=== PATIENT | female | born 1950 | race Caucasian/White ===

== ENCOUNTER 2018-07-08 08:06 | Day surgery (SDC) | payer MEDICARE, OTHER ==
[~2018-07-08] VITALS: Ht 165.1 cm; Wt 88.9 kg
[~2018-07-08 08:06] MED LIST: ALEVE220 M2 PO; AMLODIPINE BESY10 MG PO; APPLE CIDER VINEGAR PO; CO Q10200 MG PO; DYMISTA1 SPR; EPIPEN 2-P0.3 MG/0.3 IM; GAS RELIEF EXT125 MG PO; GINKGO BILOB120 M1 PO; LISINOPRIL40 MG PO; MULTI FOR HER 50+ PO; MUPIROCIN2 % EX; MYRBETRIQ50 MG PO; PRILOSEC20 MG PO; PROBIOTIC MULTI1 TAB PO; SERTRALINE100 MG PO; SG ASA LOW81 M1 PO; SIMVASTATIN20 MG PO; SUPER B-50 COMPLEX PO; TURMERIC CURCUM1 CA1 PO; TURMERIC CURCUM1 CAP PO; [UNRECOGNIZED DRUG - OTHER] PO
[2018-07-08 11:39] VITALS: BP 152/87
== END 2018-07-08 11:55 | disposition home or self-care (01) ==
LOC: ENDO 08:06
PROVIDERS: ATTEND Surgery
PROC: 0DJD8ZZ Inspection of Lower Intestinal Tract, Via Natural or Artificial Opening Endoscopic (ICD-10-PCS; principal; 2018-07-08)
DX: Z12.11 Encounter for screening for malignant neoplasm of colon (principal); K64.4 Residual hemorrhoidal skin tags; Q43.8 Other specified congenital malformations of intestine; K57.30 Diverticulosis of large intestine without perforation or abscess without bleeding

== ENCOUNTER 2019-01-15 22:21 | Emergency (ER) | payer MEDICARE, OTHER ==
[~2019-01-15] VITALS: Ht 165.1 cm; Wt 89.0 kg
[2019-01-15 23:32] LABS: URINE BLOOD DIPSTICK LARGE (NEGATIVE); URINE COLOR YELLOW; URINE GLUCOSE - DIPSTICK NEGATIVE (NEGATIVE); URINE KETONE TRACE mg/dL (NEGATIVE); URINE LEUK ESTERASE NEGATIVE (NEGATIVE); URINE NITRITE - DIPSTICK NEGATIVE (Negative); URINE PROTEIN - DIPSTICK TRACE mg/dL (NEG-TRACE); URINE SPECIFIC GRAVITY >=1.030
[2019-01-15 23:33] LABS: HEMATOCRIT 38.1 % (37.0-47.0); IMMATURE GRANULOCYTES 0.3 % (0.0-5.0); MEAN CELL VOLUME 90.1 fL CALC (80.0-100.0); MEAN CORPUSCULAR HGB 28.4 pG CALC (26.0-32.0); MEAN CORPUSCULAR HGB CONC 31.5 g/L CALC (32.0-36.0); NEUT# 8.53 thou/uL (2.00-7.15); RED BLOOD COUNT 4.23 mill/uL (4.20-5.60); RED CELL DISTRI WIDTH 15.6 % (11.5-15.5)
[2019-01-15 23:39] LABS: ALBUMIN 4.5 g/dL (3.2-5.0); AMYLASE 50 u/l (30-110); ANION GAP 17 (6-22 (CALC)); BILIRUBIN, TOTAL 3.3 mg/dL (0.0-1.4); BUN 28 mg/dL (8-23); BUN/CREATININE RATIO 27 (12-20 (CALC)); CARBON DIOXIDE 22 mmol/l (22-30); CHLORIDE 105 mmol/l (95-108); CREATININE 1.1 mg/dL (0.5-1.0); GFR 49 ML/MIN (>=60 (CALC)); GFR FOR AFR.AMER. 60 ML/MIN (>=60 (CALC)); LIPASE 139 u/l (23-300); POTASSIUM 3.5 mmol/l (3.5-5.1); SODIUM 140 mmol/l (137-146)
[2019-01-15 23:40] LABS: URINE BILIRUBIN - DIPSTICK NEGATIVE (NEGATIVE)
[2019-01-15 23:44] LABS: ALKALINE PHOSPHATASE 242 u/l (38-126); SGOT/AST 305 u/l (9-36); TOTAL PROTEIN 8.4 g/dL (6.3-8.2)
[2019-01-15 23:47] LABS: URINE BACTERIA MODERATE hpf; URINE CALCIUM OXALATE CRYSTALS FEW lpf; URINE RBC TNTC RBC/hpf (0-5); URINE SQUAMOUS EPITHELIAL CELL FEW EPI/hpf (0-FEW); URINE WBC 0-2 WBC/hpf (0-5)
[2019-01-15 23:51] LABS: MYOGLOBIN 44 ng/mL (0 - 62)
[2019-01-16 05:30] VITALS: BP 164/78
== END 2019-01-16 05:35 | disposition short-term general hospital (02) ==
LOC: ED 22:21
PROVIDERS: Emergency Medicine
DX: K83.1 Obstruction of bile duct (principal); I10 Essential (primary) hypertension; R82.71 Bacteriuria
CPT/HCPCS: S0164

== ENCOUNTER 2019-04-04 07:48 | Emergency (ER) | payer MEDICARE, OTHER ==
[~2019-04-04] VITALS: Ht 165.1 cm; Wt 80.0 kg
[2019-04-04 08:12] LABS: URINE BLOOD DIPSTICK LARGE (NEGATIVE); URINE COLOR YELLOW; URINE GLUCOSE - DIPSTICK NEGATIVE (NEGATIVE); URINE KETONE TRACE mg/dL (NEGATIVE); URINE NITRITE - DIPSTICK NEGATIVE (Negative); URINE PH 6.5 (4.5-8.0); URINE PROTEIN - DIPSTICK >=300 mg/dL (NEG-TRACE); URINE SPECIFIC GRAVITY 1.025; URINE UROBILINOGEN - DIPSTICK 0.2 E.U./dL (0.2)
[2019-04-04 08:15] LABS: URINE BILIRUBIN - DIPSTICK NEGATIVE (NEGATIVE); URINE LEUK ESTERASE MODERATE (NEGATIVE)
[2019-04-04 08:16] LABS: URINE RBC 25-50 RBC/hpf (0-5); URINE SQUAMOUS EPITHELIAL CELL FEW EPI/hpf (0-FEW); URINE WBC TNTC WBC/hpf (0-5)
[2019-04-04] MEDS ORDERED: KEFLEX500 M1 PO (08:58)
[2019-04-04] MEDS ORDERED: PYRIDIUM200 MG PO (08:58)
[2019-04-04 09:05] VITALS: BP 148/86
== END 2019-04-04 09:05 | disposition home or self-care (01) ==
LOC: ED 07:48
PROVIDERS: Emergency Medicine
DX: N39.0 Urinary tract infection, site not specified (principal); R30.0 Dysuria; B96.20 Unspecified Escherichia coli [E. coli] as the cause of diseases classified elsewhere

== ENCOUNTER 2021-08-28 01:24 | Inpatient (IN) | payer MEDICARE, OTHER ==
[2021-08-28] VITALS (9 sets, daily range): BP systolic 105–127; BP diastolic 49–80
[~2021-08-28] VITALS: Ht 165.1 cm; Wt 75.3 kg
[~2021-08-28 01:24] MED LIST changes: +ALLERGY RE50 MCG/ACT PO; +BUPROPN HCL300 MG PO; +CALCIUM MAGNESIUM & PO; +CO Q10 MAX200 MG PO; -CO Q10200 MG PO; +CRANBERRY PO; +DAIRY RELIE3000 UNIT PO; +DILAUDID2 MG PO; +KEFLEX500 M1 PO; +L-LYSINE500 M2 PO; +MELATONIN5 M3 PO; +PYRIDIUM200 MG PO; +TURMERIC CURCUM1 CHW PO; +VITAMIN D35000 UNIT PO; -[UNRECOGNIZED DRUG - OTHER] PO
--- NOTE | 2021-08-28 01:30 | NUR ---
AMBULATED TO ROOM WITH STEADY GAIT
--- NOTE | 2021-08-28 02:10 | NUR ---
PT AWARE OF PLAN OF CARE; PT LAYING COMFORTABLY ON ED COT; STATES NO FURTHER ASSISTANCE AT THIS TIME
[2021-08-28 02:36] LABS: HEMATOCRIT 27.7 % (37.0-47.0); HEMOGLOBIN 8.6 g/dl (12.0-16.0); IMMATURE GRANULOCYTES 0.5 % (0.0-5.0); MEAN CELL VOLUME 91.4 fL CALC (80.0-100.0); MEAN CORPUSCULAR HGB 28.4 pG CALC (26.0-32.0); NEUT# 9.92 thou/uL (2.00-7.15); RED BLOOD COUNT 3.03 mill/uL (4.20-5.60); RED CELL DISTRI WIDTH 14.6 % (11.5-15.5)
[2021-08-28 02:49] LABS: ALBUMIN 3.2 g/dL (3.2-5.0); ALKALINE PHOSPHATASE 80 u/l (38-126); BUN 13 mg/dL (8-23); BUN/CREATININE RATIO 16 (12-20 (CALC)); CHLORIDE 99 mmol/l (95-108); CREATININE 0.8 mg/dL (0.5-1.0); GFR > 60 ML/MIN (>=60 (CALC)); GFR FOR AFR.AMER. > 60 ML/MIN (>=60 (CALC)); POTASSIUM 3.2 mmol/l (3.5-5.1); SGOT/AST 31 u/l (9-36); SODIUM 136 mmol/l (137-146); TOTAL PROTEIN 6.6 g/dL (6.3-8.2)
--- NOTE | 2021-08-28 02:56 | NUR ---
PT AWARE OF PLAN OF CARE; STATES NO FURTHER ASSISTANCE AT THIS TIME
--- NOTE | 2021-08-28 03:20 | NUR ---
PT USING RESTROOM;UNABLE TO PROVIDE SAMPLE AT THIS TIME
--- NOTE | 2021-08-28 04:15 | NUR ---
PT AWARE OF PLAN OF CARE; GIVEN WARM BLANKET
[2021-08-28 05:09] LABS: ANION GAP 9 (6-22 (CALC)); BILIRUBIN, TOTAL 0.6 mg/dL (0.0-1.4); CARBON DIOXIDE 31 mmol/l (22-30)
--- NOTE | 2021-08-28 05:27 | NUR ---
RESTING COMFORTABLY. DENIES CONCERNS AT THIS TIME.
[2021-08-28 06:40] LABS: URINE BILIRUBIN - DIPSTICK NEGATIVE (NEGATIVE); URINE BLOOD DIPSTICK SMALL (NEGATIVE); URINE COLOR YELLOW; URINE GLUCOSE - DIPSTICK NEGATIVE (NEGATIVE); URINE KETONE NEGATIVE (NEGATIVE); URINE PROTEIN - DIPSTICK NEGATIVE (NEG-TRACE); URINE SPECIFIC GRAVITY <=1.005; URINE UROBILINOGEN - DIPSTICK 0.2 E.U./dL (0.2)
[2021-08-28 06:45] LABS: URINE NITRITE - DIPSTICK NEGATIVE (Negative)
[2021-08-28 06:46] LABS: URINE LEUK ESTERASE NEGATIVE (NEGATIVE)
[2021-08-28 06:50] LABS: URINE BACTERIA MODERATE hpf; URINE EPITHELIAL CELLS MANY EPI/hpf (0-FEW)
--- NOTE | 2021-08-28 06:50 | NUR ---
report rec from tao FULLER
--- NOTE | 2021-08-28 06:55 | NUR ---
REPORT CALLED BY LOY FULLER AND PT TRANSPORTED TO [facility] VIA WC IN NO DISTRESS BY JONNY SAUL
--- NOTE | 2021-08-28 07:12 | NUR ---
PT ARRIVED VIA WC ACCOMPANIED BY ED RN. PT A&O X4. NO DISTRESS NOTED. STEADY GAIT NOTED DURING TRANSFER TO BED. PT DENIES ANY CURRENT PAIN AT THIS TIME. PT REPORTS HAVING HERNIA REPAIR SURGERY 2 WEEKS AGO; WHICH INITIALLY STARTED LAPAROSCOPICALLY ENDED WITH OPEN. HAD A FOLLOW UP APPOINTMENT WITH DR MATUTE A WEEK AGO WHERE VIKTOR WERE REMOVED. PT REPORTS DRAINAGE STARTEED LAST NIGHT, PT REPORTS A LARGE AMOUNT OF DRAINAGE ASSOCIATED WITH IT. DRESSING PLACED BY ED; ABD PAD. SMALL AMOUNT OF DRAINAGE NOTED TO ABD PAD; AREA OF PURULENT AREA NOTED; REDNESS NOTED AROUND SURROUNDING AREA; WARM TO TOUCH. SEE CHART FOR PHOTO. CLEAR BREATH SOUNDS HEARD UPON AUSCULTATION. HYPOACTIVE BOWEL SOUNDS. #20G RAC HEALTHY AND PATENT. LIMB ALERT BRACELET ADDED TO LT ARM; PER PT SHE HAS HAD A MASECTOMY. PT EDUCATED ON NPO STATUS; PT AGREEABLE AND VERBALIZED UNDERSTANDING . TRACE EDEMA NOTED TO BLE. EZEQUIEL FULLER OFFERED; REFUSED AT THIS TIME. ORIENTED PT TO ROOM. ASSESSMENT COMPLETED. DISCUSSED POC. CALL LIGHT WITHIN REACH.
--- NOTE | 2021-08-28 08:00 | NUR ---
PT ARRIVED VIA WHEELCHAIR BY ER NURSE PERFECTO. PT IS A&O X3. IV RFA #20G IS PATENT NO SIGN OF INFILTRATION, FLUSHED WITH NO RESISTANCE. PT ADMITTED FOR A WALL ABCESS POST OP. LEAKING OCCURS THROUGH THE ABDOMEN. ABDOMEN LOOKS MILDLY RED/ SLIGHT BLUE BRUISE. IT IS WARM TO TOUCH. PT STATES NO PAIN AT THIS TIME. S1 AND S2 HEARD. LUNG SOUNDS ARE CLEAR UPPER/LOWER LOBES. BREATHING IS EVEN AND UNLABORED. BOWEL SOUNDS ARE HYPOACTIVE X4. PT HAS EDEMA ON LOWER LEGS/ TRACE. RADIAL PULSES ARE STRONG EQUALLY BILATERALLY. PEDAL PULSES ARE WEAK EQUALLY BILATERALLY. PT IS TO BE NPO. CALL LIGHT IS WITHIN REACH.
--- NOTE | 2021-08-28 10:07 | NUR ---
DRESSING ON ABDOMEN CHANGED. PT REPORTS NO PAIN WHILE DRESSING
--- NOTE | 2021-08-28 10:57 | NUR ---
PT LEFT TO OR WITH JONNY PADILLA AND JONNY VITAL.
--- NOTE | 2021-08-28 10:58 | NUR ---
ATTEMPT MADE TO UPDATE ON POC/PROCEDURE. UNABLE TO GET AHOLD OF THE . PT LEFT IN STABLE CONDITION ACCOMPANIED BY OR STAFF. IV REMAINS HEALTHY AND PATENT WITH IVF INFUSING PER MAR ORDERS. PT REPORTS TO BE NPO SINCE MIDNIGHT
--- NOTE | 2021-08-28 12:00 | NUR ---
PT IN OR FOR SURGERY AT THIS TIME.
--- NOTE | 2021-08-28 12:35 | NUR ---
S: EZ RAINEY is a 71 F who presents with intra-abdominal abscess She has a history of hypertension,breast cancer,hyperlipidemia,GERD,Shingles,Anxiety/depression All medications in patient's chart were reviewed. O: VS: BP: 127/49mmmhg, P:82BPM, RR:29 BPM,T:98.9 W: 75.296 KG, HT:5 FT 5 IN, Scr= 1 MG/DL,CrCl= 65 ml/min A: Blood culture is pending . Urine culture is pending Wound culture is pending P: Patient is on Aztreonam 2g Q8H IV . Vancomycin ordered for pharmacy to dose. Start Vancomycin 1g IV Q24H. Vancomycin trough is drawn before the 4th dose on 08/31/2021 at 0200. Vancomycin goal trough is between 10-15 mcg/ml. Pharmacy will follow and or advise on antibiotics use as needed.
--- NOTE | 2021-08-28 13:34 | NUR ---
DR MATUTE CALLED AND SPOKE WITH TEJAS MARTINEZ PT [facility]. THEY GAVE HER A DOSE OF ZOSYN IN THE OR AND PT TOLERATED FINE. GIOVANI WANTS TO CONTINUE ZOSYN INSTEAD OF AZTREONAM/VANCO. CALLED AND SPOKE WITH KELLY FULLER ON MS AND ASKED HER TO KEEP A CLOSE EYE ON PT WHILE RECEIVING ZOSYN.
--- NOTE | 2021-08-28 14:06 | NUR ---
PT ARRIVED VIA STRETCHER ACCOMPANIED BY PACHECO FULLER. PT IN STABLE CONDITION. A&O X4. NO DISTRESS NOTED. PT DENIES ANY PAIN AT THIS TIME. NOT DROWSY. WOUND VAC NOW IN PLACE TO MID ABDOMEN; CURRENTLY SET TO CONTINOUS SUCTION AT 125 MM/HG; SMALL AMOUNT OF SEROSANGUINEOUS DRAINAGE NOTED IN COLLECTION CHAMBER. PT REORIENTED TO ROOM. EDUCATED ON VS MONITORING; WATER AND ICE CHIPS PROVIDED ; PER MD ORDERS MAY RESUME REGULAR DIET. BILATERAL SCDS PLACE. CALL LIGHT WITHIN REACH.
--- NOTE | 2021-08-28 14:33 | NUR ---
CALLED [facility] WOUND VAC TO BE PLACED ON THIS PT. WOUND VAC NUMBER [id number] SPOKE TO FRANTZ AND WAS GIVEN CONFIRMATION NUMBER [id number]. AND SHE WILL BE SENDING A REPLACEMENT FOR THIS WOUND VAC.
--- NOTE | 2021-08-28 16:00 | NUR ---
PT AWAKE AND ALERT IN ROOM WATCHING TV. REPORTS NO PAIN AT THIS TIME. WOUND VAC ON PT IN THE MIDDLE OF THE ABDOMEN. SCD ARE IN PLACE. IV IS PATENT INFUSING LR @ 75ML/HR. PT IS ON REGULAR DIET. CALL LIGHT WITHIN REACH. EXTRA WOUND VAC DRESSINGS IN DRAWER IF NEEDED.
--- NOTE | 2021-08-28 18:10 | NUR ---
PT REFUSED TORADOL AT THIS TIME. NO PAIN REPORTED. ZOSYN INITIATED AT THIS TIME. THIS GREEN CHAIN OFF BEARER AT BEDSIDE TO MONITOR FOR ADVERSE REACTIONS. AFTER 15 MIN NO REACTION OBSERVED. WOUND VAC CONTINUES TO SUCTION. WOUND VAC DRESSING INTACT. CALL LIGHT WITHIN REACH.
--- NOTE | 2021-08-28 20:15 | NUR ---
PT MEDICATED ORDERS PROVIDE. ASSESSMENT COMPLETED AT THIS TIME. SNACK/DRINK PROVIDED. SHE REPORTS BEING ALERGIC TO CITRUS, ARTIFICIAL SWEATNERS, LACTOSE INTOLERENT, PROVIDED CRACKERS AND JUICE PER HER REQUEST OF APPLEJUICE AND CRANBERRY. WOUND VAC TO ABD INCISION INTACT SEAL WITH CONT SUCTION TO 125 WITH SMALL AMOUNT OF RED DRAINAGE TO VAC CANISTER. PT DENIES ANY OTHER NEEDS AT THIS TIME. CALL LIGHT IS IN HAND AND SHE HAS BEEN ENCOUARGED TO CALL NEEDS ARISE.
--- NOTE | 2021-08-28 22:00 | NUR ---
PT CALLED TO ASK FOR ASSISTANCE TO BSC. PT AMBULATED WELL WITH ASSISTANCE NAVIGATING TUBING,WIRES, SCD'S. WOUND-VAC WITH CLEAN INTACT SEAL. CALL LIGHT PLACED WITHIN REACH, PT LEFT SITTING ON BSC PER REQUEST.
--- NOTE | 2021-08-28 23:42 | NUR ---
NIGHT PATROL INSPECTOR JUST LEAVING ROOM FROM OBTAINING V/S. PT WAS RETURNING TO SLEEP ALREADY. SONOROUS SOUNDS HEARD, SHE DID RESPOND TO MY VOICE REMAINING WITH EYES CLOSED. IV ABX ADMINISTERED AND TORODOL ORDERS PROVIDE AT THIS TIME. CALL LIGHT IS W/IN REACH.
[2021-08-29] VITALS: BP 123/58
--- NOTE | 2021-08-29 03:32 | NUR ---
Pt assisted to bsc and back to the bed w/out issues. Pt denies any other needs at this time.
[2021-08-29 04:00] VITALS: BP 111/64
[2021-08-29 06:03] LABS: HEMATOCRIT 26.2 % (37.0-47.0); HEMOGLOBIN 8.2 g/dl (12.0-16.0); IMMATURE GRANULOCYTES 0.5 % (0.0-5.0); MEAN CELL VOLUME 89.7 fL CALC (80.0-100.0); MEAN CORPUSCULAR HGB 28.1 pG CALC (26.0-32.0); MEAN CORPUSCULAR HGB CONC 31.3 g/dL CAL (32.0-36.0); NEUT# 4.22 thou/uL (2.00-7.15); RED BLOOD COUNT 2.92 mill/uL (4.20-5.60); RED CELL DISTRI WIDTH 14.8 % (11.5-15.5)
--- NOTE | 2021-08-29 07:00 | NUR ---
RECIEVED REPORT FROM JONNY HASKINS
[2021-08-29 07:40] VITALS: BP 135/63
--- NOTE | 2021-08-29 07:40 | NUR ---
PT SLEEPING IN SEMI FOWLERS POSITION. AWAKENS TO SPEECH. PT IS A/O X3. ASSESSMENT AND VITALS COMPLETED. BP 135/63, HR 81, O2 98% ON ROOM AIR. RESPIRATIONS ARE EVEN AND UNLABORED WITH NO DISTRESS NOTED. LUNG SOUNDS ARE CLEAR. HEART RHYTHM NORMAL. BOWEL SOUNDS ARE ACTIVE IN ALL QUADRANTS. #22G RAC INFUSING WITH IVF PER ORDER, SITE REMAINS HEALTHY AND PATENT. SKIN INTACT. SCDS APPLIED. WOUND VAC TO MID ABD REMAIN CDI WITH SUCTION @125, SMALL BLOODY DRAINAGE NOTED. LEFT LIMB ALERT NOTED. PT DENIES OF ANY PAINS OR DISCOMFORTS AT THIS TIME. ALL SAFTEY PRECAUTIONS ARE IN PLACE WITH CALL LIGHT IN REACH. WILL CONTINUE TO MONITOR.
--- NOTE | 2021-08-29 10:49 | NUR ---
DR STERN AND MESHA,ANRP AT BEDSIDE
--- NOTE | 2021-08-29 12:05 | NUR ---
PT RESTING IN SEMI FOWLERS POSITION WATCHING TV. RESPIRATIONS ARE EVEN AND UNLABORED WITH NO DISTRESS NOTED ON ROOM AIR. #22G RFA REMAINS INFUSING WITH IV ANTIBITICS WITH EASE, SITE REMAINS HEALTHY AND PATENT. WOUND VAC TO MID ABD REMAINS CDI, SUCTION @125. SCDS REMAINS IN PLACE. PT REFUSES TORADOL, PT DENIES OF ANY PAINS. ALL SAFETY PRECAUTIONSA RE IN PLACE WITH CALL LIGHT IN REACH. WILL CONTINUE TO MONITOR.
--- NOTE | 2021-08-29 13:13 | NUR ---
dr noel at bedside
[2021-08-29 15:14] VITALS: BP 127/80
--- NOTE | 2021-08-29 15:26 | NUR ---
PT ARRIVED TO [facility] ROOM 272 VIA WHEELCHAIR ACCOMPAINED BY ER STAFF. PT TO BSC FOR BM AT THIS TIME.
--- NOTE | 2021-08-29 16:09 | NUR ---
PT SITTING UP IN CHAIR TALKIN JOSUE PHONE. RESPIATIONS ARE EVEN AND UNLABORED WITH NO DISTRESS NOTED. #22G RAC INFUSING WITH SCHEDULED MEDICATION, SITE APPEARS HEALTHY AND PATENT. WOUND VAC TO MID ABD REMAINS CDI, SUCTION @125.MINIMAL BLOODY DRAINAGE NOTED. PT DENIES OF ANY PAINS OR DISCOMFORTS AT THIS TIME. PT ASSISTED TO BSC AND THEN BED. PT DENIES OF ANY ADDITIONAL NEEDS AT THIS TIME. ALL SAFETY PRECAUTIONS ARE IN PLACE WITH CALL LIGHT IN REACH. WILL CONTINUE TO MONITOR
--- NOTE | 2021-08-29 18:55 | NUR ---
REPORT RECEIVED FROM Kyle SAENZ LPN
[2021-08-29 19:00] VITALS: BP 117/62
--- NOTE | 2021-08-29 20:20 | NUR ---
PT SLEEPING IN SEMI FOWLERS POSITION. AWAKENS TO SPEECH. PT IS A/O X3. ASSESSMENT COMPLETED AT THIS TIME. LUNG SOUNDS ARE CLEAR. HEART RHYTHM NORMAL. BOWEL SOUNDS ARE ACTIVE IN ALL QUADRANTS. #22G RAC INFUSING WITH IVF PER ORDER, SITE REMAINS HEALTHY AND PATENT. SKIN INTACT. SCDS APPLIED. WOUND VAC TO MID ABD REMAIN CDI WITH SUCTION @125, SMALL BLOODY DRAINAGE NOTED. LEFT LIMB ALERT NOTED. PT DENIES OF ANY PAINS OR DISCOMFORTS AT THIS TIME. ALL SAFTEY PRECAUTIONS ARE IN PLACE WITH CALL LIGHT IN REACH. WILL CONTINUE TO MONITOR.
[2021-08-30] VITALS: BP 113/55
--- NOTE | 2021-08-30 00:30 | NUR ---
PATIENT REFUSED MIDNIGHT TORADOL, STATES SHE IS IN NO PAIN. ANTIBIOTIC COMPLETED A THIS TIME. NO S/S OF REACTION PT TOLERATED WELL.
--- NOTE | 2021-08-30 00:30 | NUR ---
PATIENT UP TO THE RESTROOM AT THIS TIME ASSITED BY Shahida FALCON CNA. VOICES NO APPARENT NEEDS. CALL LIGHT AND BEDSIDE TABLE WITHIN REACH.
[2021-08-30 04:00] VITALS: BP 149/67
--- NOTE | 2021-08-30 04:03 | NUR ---
PATIENT UP TO THE RESTROOM AT THIS TIME WITH STANDBY ASSIST, NO COMPLAINTS OF PAIN. CALL LIGHT AND BEDSIDE TABLE WITHIN REACH.
[2021-08-30 07:25] VITALS: BP 123/70
--- NOTE | 2021-08-30 07:25 | NUR ---
BEDSIDE REPORT RECEIVED, PT LYING IN BED ASLEEP, AWOKEN TO SN ENTERING ROOM. ASSESSMENT PERFORMED. WOUND VAC IN PLACE, NO APPEARANCE OF LEAKING AT THIS TIME. NO COMPLAINTS/DISTRESS. WILL CONTINUE TO MONITOR.
[2021-08-30 14:48] VITALS: BP 152/70
--- NOTE | 2021-08-30 15:55 | NUR ---
PT SITTING UP IN CHAIR NO COMPLAINTS. PT PORTABLE WOUND VAC EXPECTED TO ARRIVE PRIOR TO 10PM THIS EVENING. WILL NEED TO GO WITH PT TO OR FOR SCHEDULED I&D 08/31/21.
[2021-08-30 18:53] VITALS: BP 140/75
--- NOTE | 2021-08-30 20:00 | NUR ---
PHYSICAL ASSESMENT COMPLETE. PT CURRENTLY DENIES PAIN OR DISCOMFORT. SCHEDULED MEDICATIONS AND PRN MEDICATION ADMINISTERED, SEE E-MAR. PT TRANSFERED TO BED FROM CHAIR. WOUND VAC IN PLACE RUNNING AT 125. PT DENIES ANY NEEDS AT THIS TIME. PLAN OF CARE REVIEWED, PT DENIES QUESTIONS, VERBALIZES UNDERSTANDING. ITEMS WITHIN REACH, BED LOCKED IN LOW POSITION W/ BEDRAILS UP X2. CALL MARIE WITHIN REACH, AGREES TO CALL PRN.
--- NOTE | 2021-08-30 23:57 | NUR ---
PT LAYING IN BED WITH EYES CLOSED, APPEARS TO BE SLEEPING, APPEARS COMFORTABLE AND IN NO DISTRESS. RESPIRATIONS REGULAR AND UNLABORED. ITEMS REMAIN WITHIN REACH, CALL MARIE REMAINS WITHIN REACH. BED REMAINS LOCKED AND IN LOW POSITION WITH BEDRAILS UP X2. WILL CONTINUE TO MONITOR.
[2021-08-31] VITALS (8 sets, daily range): BP systolic 134–190; BP diastolic 61–91
[2021-08-31 02:15] LABS: HEMATOCRIT 28.3 % (37.0-47.0); HEMOGLOBIN 8.8 g/dl (12.0-16.0); MEAN CELL VOLUME 91.9 fL CALC (80.0-100.0); MEAN CORPUSCULAR HGB 28.6 pG CALC (26.0-32.0); MEAN CORPUSCULAR HGB CONC 31.1 g/dL CAL (32.0-36.0); RED BLOOD COUNT 3.08 mill/uL (4.20-5.60); RED CELL DISTRI WIDTH 14.8 % (11.5-15.5)
[2021-08-31 02:42] LABS: ANION GAP 11 (6-22 (CALC)); BUN 3 mg/dL (8-23); BUN/CREATININE RATIO 4 (12-20 (CALC)); CARBON DIOXIDE 29 mmol/l (22-30); CHLORIDE 103 mmol/l (95-108); CREATININE 0.8 mg/dL (0.5-1.0); GFR > 60 ML/MIN (>=60 (CALC)); GFR FOR AFR.AMER. > 60 ML/MIN (>=60 (CALC)); MAGNESIUM 1.5 mg/dL (1.6-2.3); SODIUM 140 mmol/l (137-146)
--- NOTE | 2021-08-31 04:15 | NUR ---
PT RESTING IN BED, NO SIGNS OF DISTRESS NOTED, RESP EVEN AND UNLABORED. PT VOICES NO NEEDS OR COMPLAINTS AT THIS TIME. CALL LIGHT IN REACH, CONTINUE TO MONITOR.
--- NOTE | 2021-08-31 07:07 | NUR ---
BEDSIDE REPORT RECEIVED FROM JAMIL. PT UP TO BSC, REQUEST SN WAIT UNTIL FINISHED TO COME IN *-+\
--- NOTE | 2021-08-31 07:15 | NUR ---
BEDSIDE REPORT RECEIVED. UPON ENTERING ROOM PT WAS ON BSC AND REQUESTED SN RETURN LATER. SN RE ENTERED ROOM, OR NURSE WAS IN ROOM AND AWAITING PT FOR SCHEDULED I&D. ASSESSMENT PERFORMED, BP 190/91, OR SN STATED WILL RETAKE AND ADDRESS IN OR. PT IS ASYMPTOMATIC AT THIS TIME. PT TO OR VIA STRETCHER.
[2021-08-31] MEDS ORDERED: LEVOFLOXACIN250 M1 PO (08:54)
--- NOTE | 2021-08-31 09:30 | NUR ---
PT ARRIVED BACK TO FLOOR ESCORTED BY OR SN VIA STRETCHER. PT A&O X4. PORTABLE WOUND VAC IN PLACE AT CONTINUOUS SUCTION AT 125 MM[facility]. PT HAS NO COMPLAINTS OF PAIN AND REFUSES PAIN MEDICAITONS AT THIS TIME. PT VOIDED. ALL LATE MEDICATIONS ADMINISTERED. WILL CONTINUE TO MONITOR.
--- NOTE | 2021-08-31 12:37 | NUR ---
AWAITING MAGNESIUM TO FINISH TO GIVE ZOSYN, THEN PT WILL BE ABKE TO D/C HOME WITH HOME CARE. PT GIVEN INSTRUCTION ON HOW TO APPLY A WET TO DRY DRESSING IN CASE ANY LEAKAGE OR DISLODGEMENT OF WOUND VAC. PT TO HAVE HOME HEALTH FOR FURTHER CARE/ INSTRUCTIONS. GIVEN SUPPLY FOR WET TO DRY DRESSING WELL. NO COMPLAINTS AT THIS TIME. WILL CONTINUE TO MONITOR.
--- NOTE | 2021-08-31 13:47 | NUR ---
Discharge instructions given. Patient verbalizes understanding of same. Discharged in stable condition via Wheelchair to Home with family. All belongings AND VAC SUPPLIES sent with pt.
== END 2021-08-31 13:41 | disposition home health service (06) | DRG 857 ==
LOC: ED 01:24 → ED-I 05:28 → ED 05:44 → MS2 05:45
PROVIDERS: Nurse Practitioner; ADMIT Surgery; ATTEND Internal Medicine
PROC: 0J980ZZ Drainage of Abdomen Subcutaneous Tissue and Fascia, Open Approach (ICD-10-PCS; principal; 2021-08-28)
PROC: 0JD80ZZ Extraction of Abdomen Subcutaneous Tissue and Fascia, Open Approach (ICD-10-PCS; 2021-08-31)
DX: T81.41XA Infection following a procedure, superficial incisional surgical site, initial encounter (principal); L02.211 Cutaneous abscess of abdominal wall; I10 Essential (primary) hypertension; E78.5 Hyperlipidemia, unspecified; K21.9 Gastro-esophageal reflux disease without esophagitis; F41.9 Anxiety disorder, unspecified; F32.A Depression, unspecified; R82.71 Bacteriuria; Y83.2 Surgical operation with anastomosis, bypass or graft as the cause of abnormal reaction of the patient, or of later complication, without mention of misadventure at the time of the procedure; Z85.3 Personal history of malignant neoplasm of breast; Z88.0 Allergy status to penicillin; Z90.3 Acquired absence of stomach [part of]; Z90.710 Acquired absence of both cervix and uterus; Z90.12 Acquired absence of left breast and nipple; Z20.822 Contact with and (suspected) exposure to COVID-19
CPT/HCPCS: G0378; J1650; J1756; J2710; J3475; Q9967; S0073